=== PATIENT | female | born 1960 | race Caucasian/White ===

== ENCOUNTER 2020-05-25 13:10 | Emergency (ER) | payer OTHER, SELFPAY ==
--- NOTE | 2020-05-25 13:17 | ED.GENADULT ---
HPI - General Adult General Chief complaint: Back Pain/Injury Stated complaint: hip pain Time Seen by Provider: 05/25/20 13:17 Source: patient and RN notes reviewed Mode of arrival: ambulatory Limitations: no limitations History of Present Illness HPI narrative: 59-year-old female presents with complaints of right lower back pain that radiates down right hip and thigh for the past 2-3 days. Routine medication Neurontin and Meloxicam without relief. Denies new injuries or falls. Denies numbness or tingling. Denies fever or chills. No upper or lower extremity pain or weakness. Exacerbating factors consist of prolong standing and bending. Denies nausea, vomiting, or abdominal pain. Tolerating po intake well. Denies problems with urinating or having a bowel movement, LBM 05/25/19 per patient and normal. No flank pain or hematuria or dysuria. The patient reports she have not been diagnosed with COVID-19. The patient reports she is not waiting for the results of a COVID-19 lab test. The patient reports she do not have chills, weakness, or fatigue. The patient reports she do not have a new or worsening cough or shortness of breath. Denies chest pain. The patient reports she do not have any rhinorrhea, congestion, sore throat, loss of taste, and diarrhea. Denies recent traveling. Denies concerns for COVID-19 or exposures been home with limited outdoor exposure except for essential household needs, work, and return home. At this time, patient is not suspected of having COVID-19. Some parts of this dictation were generated by voice recognition software and may contain typographical and/or grammatical inaccuracies. Related Data Home Medications Medication Instructions Recorded Confirmed amitriptyline 25 mg DAILY 05/12/19 chlordiazepoxide HCl 10 mg DAILY 05/12/19 gabapentin 300 mg DAILY 05/12/19 meloxicam 05/12/19 Allergies Allergy/AdvReac Type Severity Reaction Status Date / Time tetanus and diphtheria Allergy Severe Anaphylactic Verified 05/12/19 14:24 toxoids Shock iodine Allergy Intermediate Rash Verified 05/12/19 14:24 Review of Systems Review of Systems: Narrative: CONSTITUTIONAL: Denies fever, chills, sweats. EYES: Denies visual changes, redness, discharge. ENT: Denies rhinorrhea, congestion, sore throat, otalgia. CARDIOVASCULAR: Denies chest pain, palpitations, edema. RESPIRATORY: Denies dyspnea, wheezing, cough. GASTROINTESTINAL: Denies abdominal pain, nausea, vomiting, diarrhea. GENITOURINARY: Denies dysuria, hematuria, abnormal discharge. SKIN: Denies rash or itching. MUSCULOSKELETAL: Complains of right lower back pain that radiates down right hip and thigh. Denies joint pain or myalgia. NEUROLOGIC: Denies numbness or focal weakness. PSYCHIATRIC: Denies anxiety or depression. 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 Social History Social History (Updated 05/25/20 @ 13:20 by LYNSEY Galdamez) Smoking status: Current every day smoker Tobacco type: cigarettes Second hand tobacco smoke exposure: Yes Alcohol intake: never Substance use: never Living arrangements: with family Occupation/Education: occupation Gender identity (if verbalized by the patient): Female Sexual Orientation (if Verbalized by the Patient): Straight or Heterosexual Comments At time of signature, agree with nurse past medical, surgical, s
[2020-05-25 13:25] VITALS: BP 130/65; PULSE 85; RESP 18; TEMP 36.4; O2SAT 99
[2020-05-25] MEDS: methylPREDNISolone ACETATE 80 MG/ML VIAL IM (13:26)
--- NOTE | 2020-05-25 15:28 | PC.NURSE ---
Depo Medrol 80 mg IM administerd by Silvio Ellis NP at 1323
== END 2020-05-25 13:40 | disposition home or self-care (01) ==
PROVIDERS: Emergency Provider Nurse Practitioner Family; PCP Family Medicine
DX: M54.41 Lumbago with sciatica, right side (principal); F17.210 Nicotine dependence, cigarettes, uncomplicated; M19.90 Unspecified osteoarthritis, unspecified site; K21.9 Gastro-esophageal reflux disease without esophagitis; G61.0 Guillain-Barre syndrome; G62.9 Polyneuropathy, unspecified
CPT/HCPCS: 96372; 99213; G0463; J1040

== ENCOUNTER → 2020-10-27 12:01 | Outpatient (CLI) | payer OTHER, SELFPAY ==
--- NOTE | ~2020-10-27 | XR_ITS ---
EXAMINATION: XR hand RT min 3V DATE: 10/27/2020 12:26 INDICATION: Right hand pain and swelling at the distal second metacarpal. TECHNIQUE: Posteroanterior, oblique and lateral views of the right hand were obtained. COMPARISON: None. FINDINGS: Alignment is normal. No fracture. Polyarticular osteoarthritis, moderate severity at the distal radio ulnar joint and mild at the radiocarpal and multiple joints throughout the right hand with first carp al metacarpal and distal interphalangeal predominance. No erosions identified. Periarticular soft tis zhane swelling is seen at the second metacarpophalangeal joint. IMPRESSION: 1. Polyarticular osteoarthritis, moderate at the distal radioulnar joint and mild at multiple additio nal joints in the right hand and wrist. 2. Nonspecific reticular soft tissue swelling at the second metacarpophalangeal joint without evident joint space narrowing or erosions. Reviewed, dictated and finalized at location A. IMPRESSION: 1. Polyarticular osteoarthritis, moderate at the distal radioulnar joint and mi ld at multiple additional joints in the right hand and wrist. 2. Nonspecific reticular soft tissue swelling at the second metacarpophalangeal joint without evident joint space narrowing or erosions.
== END ==
PROVIDERS: PCP Family Medicine; Visit Provider Family Medicine
DX: M19.041 Primary osteoarthritis, right hand (principal)
CPT/HCPCS: 73130